=== PATIENT | male | born 1975 | race Two or more races ===

== ENCOUNTER 2022-07-15 15:47 | Inpatient (IN) | payer OTHER ==
[~2022-07-15] VITALS: Ht 165.1 cm; Wt 68.0 kg
[2022-07-15] MEDS ORDERED: LANTUS SOL100 UNIT/1 (16:05)
[2022-07-15] MEDS ORDERED: HUMALOG100 UNIT/2 (16:05)
--- NOTE | 2022-07-15 16:06 | NUR ---
SE RECIBE PTE ALERTA Y ORIEJTADO X3 EN AMBULANCIA LE CUAL REIFER EVENIR POR VOMITOS Y AZUCAR ELEVADA. SE MIDEN S/V A PTE Y SE COLOCA EN LEAH.
--- NOTE | 2022-07-15 16:32 | NUR ---
PACIENTE EVALUADO POR EL DR. TOUSSAINT. SE ADMINISTRAN MEDICAMENTOPS EUNICE ORDEN MEDICA. CANALIZADO EN NIKIO BLAYNE CON UN #20 Y KVNG HEATH #22. SE HAROON MUESTRAS DE OSMAN Y SE ENVIA A LABORATORIO.
--- NOTE | 2022-07-15 17:22 | NUR ---
SE RECIBE DEL AREA DE OBSERVACION. SE COLOCA MONITOR CARDIACO Y OXIMETRIA DE PULSO, CANULA NASAL A 2 LITROS. SE ADMINISTRAN MEDICAMENTOS EUNICE ORDEN MEDICA.
[2022-07-23] MEDS ORDERED: LIPITOR40 MG PO (16:18)
[2022-07-23] MEDS ORDERED: ECOTRIN325 M1 PO (16:19)
[2022-07-23] MEDS ORDERED: TOPROL XL25 M1 PO (16:19)
[2022-07-23] MEDS ORDERED: VASOTEC2.5 MG PO (16:57)
== END 2022-07-23 18:17 | disposition home or self-care (01) | DRG 637 ==
LOC: ER 15:47 → ICU-2 19:19 → SEC-K 07-19 15:38 → SURG 07-19 18:55
PROVIDERS: ADMIT Internal Medicine; ATTEND Internal Medicine
PROC: B24BZZZ Ultrasonography of Heart with Aorta (ICD-10-PCS; principal; 2022-07-16)
PROC: 4A12X4Z Monitoring of Cardiac Electrical Activity, External Approach (ICD-10-PCS; 2022-07-19)
PROC: C23GYZZ Positron Emission Tomographic (PET) Imaging of Myocardium using Other Radionuclide (ICD-10-PCS; 2022-07-22)
DX: E10.10 Type 1 diabetes mellitus with ketoacidosis without coma (principal); I21.A1 Myocardial infarction type 2; I24.9 Acute ischemic heart disease, unspecified; N17.8 Other acute kidney failure; E86.0 Dehydration; I10 Essential (primary) hypertension; E87.8 Other disorders of electrolyte and fluid balance, not elsewhere classified